=== PATIENT | male | born 1955 | race Two or more races ===

== ENCOUNTER 2023-12-10 22:53 | Emergency (ER) | payer OTHER ==
[~2023-12-10] VITALS: Ht 165.1 cm; Wt 100.2 kg
[2023-12-10] MEDS ORDERED: HYDRALAZINE HCL50 MG (23:13)
[2023-12-10] MEDS ORDERED: FLUOXETINE DR90 MG (23:13)
[2023-12-10] MEDS ORDERED: AZOR 5-40 MG T1 EACH (23:13)
[2023-12-10] MEDS ORDERED: TAMS0.4C (23:13)
[2023-12-10] MEDS ORDERED: ATORVASTATIN CA80 MG (23:13)
[2023-12-10] MEDS ORDERED: CARVEDILOL ER40 MG (23:13)
[2023-12-10] MEDS ORDERED: METFORMIN HCL500 M3 (23:14)
[2023-12-10] MEDS ORDERED: ALLOPURINOL300 MG (23:14)
[2023-12-10] MEDS ORDERED: MOUNJARO2.5 MG/0.5 (23:28)
[2023-12-11] MEDS ORDERED: MEPERIDINE HCL/PF 50 MG/ML VIAL IM STA (00:27)
[2023-12-11] MEDS ORDERED: KETOROLAC TROMETHAMINE 30 MG VIAL IV STA (00:27)
[2023-12-11] MEDS ORDERED: HYOSCYAMINE SULFATE 0.125 MG TAB.SUBL SL STA (00:28)
[2023-12-11] MEDS ORDERED: PROMETHAZINE HCL 50 MG/ML AMPUL IM STA (00:28)
[2023-12-11] MEDS ORDERED: PROMETHAZINE HCL 50 MG/ML AMPUL IM ONE (00:39)
[2023-12-11] MEDS ORDERED: KETOROLAC TROMETHAMINE 30 MG VIAL ONE (00:39)
[2023-12-11] MEDS ORDERED: HYOSCYAMINE SULFATE 0.125 MG TAB.SUBL ONE (00:39)
[2023-12-11 01:15] LABS: HEMATOCRIT 35.6 % (39.0-48.0); HEMOGLOBIN 11.9 g/dL (13-16.00); MEAN CELL VOLUME 91.3 fL (80.0-100.00); MEAN CORPUSCULAR HEMOGLOBIN 30.5 pg (27.00-32.0); MEAN CORPUSCULAR HGB CONC 33.5 g/dl (32.0-36.0); PLATELET COUNT 173 K/uL (150-450); RED CELL DISTRIBUTION WIDTH 15.8 % (11.5-14.5)
[2023-12-11 01:17] LABS: PH,URINE 6.5 (5.0-8.0); URINE APPEARANCE Turbid; URINE BILIRRUBIN Negative (NEGATIVE); URINE BLOOD Large; URINE COLOR Orange; URINE KETONE Negative (NEGATIVE); URINE LEUKOCYTE Moderate; URINE NITRATE Negative; URINE UROBILINOGEN 0.2 E.U./dl
[2023-12-11 01:20] LABS: URINE EPITHELIAL CELLS 2.7 uL (0.0-38.8); URINE WBC 102.9 uL (0.0-23.2)
[2023-12-11 01:32] LABS: CALCIUM 9.7 mg/dL (8.5-10.1); CREATININE SERUM 1.88 mg/dL (0.70-1.30); GFR 35.86; POTASSIUM 4.19 mEq/L (3.5-5.1)
[2023-12-11 01:57] LABS: URINE CAST 0.23 uL (0.0-1.40); URINE GLUCOSE 100 MG/DL (NEGATIVE); URINE PROTEIN 100 (NEGATIVE); URINE RBC > 10558.9 uL (0.0-20.8)
[2023-12-11] MEDS ORDERED: CIPROFLOXACIN IN 5 % DEXTROSE 400 MG/200 ML PIGGYBAG IV STA (01:59)
[2023-12-11] MEDS ORDERED: CIPROFLOXACIN IN 5 % DEXTROSE 400 MG/200 ML PIGGYBAG IV ONE (02:12)
== END 2023-12-11 05:21 | disposition home or self-care (01) ==
LOC: ER 22:54
DX: N20.2 Calculus of kidney with calculus of ureter (principal); E11.9 Type 2 diabetes mellitus without complications; Z79.84 Long term (current) use of oral hypoglycemic drugs
CPT/HCPCS: 36415; 74176; 96365; 96372; 99284; J0744; J1885; J2250; J3490